=== PATIENT | female | born 1950 | race African-American/Black ===

== ENCOUNTER 2020-07-21 09:40 | Day surgery (SDC) | payer OTHER | END 2020-07-21 15:10 | disposition home or self-care (01) | LOC: AMB-ENDOS 09:40 | PROVIDERS: ATTEND Surgery | DX: D12.0 Benign neoplasm of cecum (principal); Z20.822 Contact with and (suspected) exposure to COVID-19 ==

== ENCOUNTER 2024-06-27 05:40 | Day surgery (SDC) | payer OTHER ==
[2024-06-21 14:39] VITALS: BP 119/67
[~2024-06-27] VITALS: Ht 157.5 cm; Wt 80.3 kg
[~2024-06-27 05:40] MED LIST: SIMVASTATIN10 MG PO; SYNTHROID100 MCG PO; ZESTRIL5 MG PO
[2024-06-27] MEDS ORDERED: LIDOCAINE HCL 1%/EPINEPHRINE 20ML VIAL IJ ONE (07:08)
[2024-06-27] MEDS ORDERED: BUPIVACAINE HCL/Mpf 0.5% 10ML VIAL ONE (07:08)
[2024-06-27] MEDS ORDERED: CEFOXITIN SODIUM 2,000 MG VIAL IV ONE (07:09)
[2024-06-27] MEDS ORDERED: MORPHINE SULFATE 4 MG/ML VIAL IV ONE (09:35)
[2024-06-27] MEDS ORDERED: PROTONIX40 MG PO (11:04)
[2024-06-27] MEDS ORDERED: TRAM1TAB98 PO (11:04)
[2024-06-27] MEDS ORDERED: CELECOXIB200 MG PO (11:04)
[2024-06-27] MEDS ORDERED: METOCLOPRAMIDE10 MG PO (11:05)
== END 2024-06-27 12:55 | disposition home or self-care (01) ==
LOC: CIR.AMB 05:40
PROVIDERS: ATTEND Surgery
DX: K80.10 Calculus of gallbladder with chronic cholecystitis without obstruction (principal); Z88.2 Allergy status to sulfonamides